=== PATIENT | female | born 1945 ===

== ENCOUNTER 2025-04-25 10:08 | Outpatient (AMB) | payer MEDICARE, SELFPAY ==
--- OUTSIDE RECORDS SUMMARY | 2025-04-19 14:42 | XMS_ITS | Encounter Summary ---
Author Organization [facility] Address [address] [place] [address] Care Team Providers Care [employer] C[employer] Cashier Name Role Phone Juany Sanchez MD Primary Care Prov ider Reason for Referral * Imaging (Routine) - Pending Review Specialty Diagnoses / Procedures Referred By Contac t Referred To Contact Radiology Diagnoses Encounter for screening mammogram for breast cancer Procedures MG Mammo Digital Screening w Lg bilat [facility], Self Referral [facility] Referral ID Status Reason Start Date Expiration Date V isits Requested Visits Authorized [id number] Pending Review 04/15/2025 04/15/2026 1 1 * Imaging (Routine) - Pending Review Specialty Diagnoses / Procedures Referred By Contac t Referred To Contact Radiology Diagnoses Encounter for screening mammogram for breast cancer Procedures MG Mammo Digital Screening w Lg bilat [facility], Self Referral [facility] Referral ID Status Reason Start Date Expiration Date V isits Requested Visits Authorized [id number] Pending Review 04/15/2025 04/15/2026 1 1 Reason for Visit * Imaging (Routine) - Pending Review Specialty Diagnoses / Procedures Referred By Contac t Referred To Contact Radiology Diagnoses Encounter for screening mammogram for breast cancer Procedures MG Mammo Digital Screening w Lg bilat [facility], Self Referral [facility] Referral ID Status Reason Start Date Expiration Date V isits Requested Visits Authorized [id number] Pending Review 04/15/2025 04/15/2026 1 1 Encounter Details Date Type Department Care Team (Latest Contact Info) Description 04/19/2025 2:42 PM EDT - 04/19/2025 11:59 PM EDT Hospital Encounter [facility] [address] [phone] Encounter for screening mammogram for breast cancer Discharge Disposition: Home or Self Care Social History Tobacco Use Types Packs/Day Years Used Date Smoking Tobacco: Former Cigarettes Q uit: 09/08/1988 Smokeless Tobacco: Never Alcohol Use Standard Drinks/Week Comments No 0 (1 standard drink = 0.6 oz pur e alcohol) Comments No Sex and Gender Information Value Date Recorded Sex Assigned at Not on file Legal Sex Female 1:09 PM EST Gender Identity Not on file Sexual Orientation Not on file documented as of this encounter Last Filed Vital Signs Vital Sign Reading Time Taken Comments Blood Pressure - - Pulse - - Temperature - - Respiratory Rate - - Oxygen Saturation - - Inhaled Oxygen Concentration - - Weight 56.2 kg (124 lb) 04/19/2025 2:53 PM EDT Height 160 cm (5' 3 ) 04/19/2025 2:53 PM EDT Body Mass Index 21.97 04/19/2025 2:53 PM EDT documented in this encounter Medications at Time of Discharge cholecalciferol (VITAMIN D-3) 50 mcg (2,000 unit) tablet Take by mouth daily. CRANBERRY ORAL Take 4,200 mg by mouth daily. GENERIC EXTERNAL MEDICATION 500 mg daily. Calcium zinc Vitamin d3 glucosamine/chondr oitin/C/Zbigniew (GLUCOSAMINE 1500 COMPLEX ORAL) Take 1,500 mg by mouth daily. Lactobacillus acidophilus (PROBIOTIC ORAL) Take by mouth. multivit-min/folic acid/lutein (CENTRUM SILVER ORAL) Take by mouth. RED YEAST RICE ORAL Take by mouth. SALMON OIL-OMEGA-3 FATTY ACIDS ORAL Take by mouth. documented as of this encounter Discharge Disposition Disposition Code Departure Means Destination Home or Self Care documented in this encounter Plan of Treatment Upcoming Encounters Date Type Department Care Team (Late st Contact Info) Description 10/13/2025 11:00 AM EST Office Visit Adult Medicine - [address] [phone] Juany Sanchez MD [address] [place] [address] 04/21/2026 3:00 PM EDT [facility]ointment [facility] [address] [phone] documented as of this encounter Procedures Procedure Name Priority Date/Time Associated Diagnosis Comments MG MAMMO DIGITAL SCREENING W LG BILAT Routine 04/19/2025 3:04 PM EDT Encounter for screening mammogram for breast cancer documented in this encounter Results * MG Mammo Digital Screening w Lg bilat (04/19/2025 3:04 PM EDT) Anatomical Region Laterality Modality Breast Bilateral Mammography 04/20/2025 6:56 AM EDT Impressions 04/20/2025 7:03 AM EDT No mammographic evidence of malignancy. No suspicious interval change. A negative mammogram in the presence of a clinically suspicious palpable abnormality does not preclude the possibility of malignancy or alter the indications for biopsy. ASSESSMENT: BI-RADS 1: NEGATIVE RECOMMENDATION(S): 1: Routine screening mammogram BILATERAL in 1 year. Mammography location: [facility] at [address], [address] -------- FINAL REPORT -------- Dictated By: Duy Jensen Dictated Date: 04/20/2025 06:56 ET Assigned Physician: Duy Jensen Reviewed and Electronically Signed By: Duy Jensen Signed Date: 04/20/2025 07:03 ET Workstation ID: [id number] Transcribed By: Self Edit Transcribed Date: 04/20/2025 06:56 ET Narrative 04/20/2025 7:03 AM EDT EXAM: SCREENING MAMMOGRAPHY, BILATERAL HISTORY: SCREENING. No additional history. COMPARISON: 10/23/23, 10/18/22, 10/16/21, 10/13/20 TECHNIQUE: Synthesized CC and MLO projections of each breast. Tomosynthesis of each breast in the CC and MLO projections. ADDITIONAL IMAGING: None Computer-aided detection was employed with the [employer] AI 3-D. TISSUE DENSITY: There are scattered areas of fibroglandular density. (BI-RADS category B) FINDINGS: RIGHT BREAST: No suspicious mass. No suspicious calcification. No distortion. No additional suspicious right breast findings LEFT BREAST: No suspicious mass. No suspicious calcification. No distortion. No additional suspicious left breast findings Procedure Note Duy Jensen MD - 04/20/2025 EXAM: SCREENING MAMMOGRAPHY, BILATERAL HISTORY: SCREENING. No additional history. COMPARISON: 10/23/23, 10/18/22, 10/16/21, 10/13/20 TECHNIQUE: Synthesized CC and MLO projections of each breast.Tomosynthesis of each breast in the CC and MLO projections. ADDITIONAL IMAGING: None Computer-aided detection was employed with the [employer] AI 3-D. TISSUE DENSITY: There are scattered areas of fibroglandular density.(BI-RADS category B) FINDINGS: RIGHT BREAST: No suspicious mass. No suspicious calcification. No distortion. Noadditional suspicious right breast findings LEFT BREAST: No suspicious mass. No suspicious calcification. No distortion. Noadditional suspicious left breast findings IMPRESSION: No mammographic evidence of malignancy. No suspicious interval change. A negative mammogram in the presence of a clinically suspicious palpableabnormality does not preclude the possibility of malignancy or alter theindications for biopsy. ASSESSMENT: BI-RADS 1: NEGATIVE RECOMMENDATION(S): 1: Routine screening mammogram BILATERAL in 1 year. Mammography location: [facility] at [address], [address] -------- FINAL REPORT -------- Dictated By: Duy Jensen Dictated Date: 04/20/2025 06:56 ET Assigned Physician: Duy Jensen Reviewed and Electronically Signed By: Duy Jensen Signed Date: 04/20/2025 07:03 ET Workstation ID: [id number] Transcribed By: Self Edit Transcribed Date: 04/20/2025 06:56 ET us Self Referral [facility] IMG BI PROCEDURES Final Resul t documented in this encounter Visit Diagnoses Diagnosis Encounter for screening mammogram for breast cancer Encounter for screening mammogram for breast cancer documented in this encounter Additional Health Concerns Assessment Noted Time PHQ-9 Depression Total Score: 0 10/12/19 25 2:09 PM EST documented as of this encounter Care Teams [employer] Cashier Relationship Specialty Start Date End Date Juany Sanchez MD PCP - General Internal Medicine 11/18/12 documented as of this encounter
--- OUTSIDE RECORDS SUMMARY | 2025-04-25 11:02 | XMS_ITS ---
Author Name [facility] Organization Unknown Care Team Organization Name Specialty Phone Email Start Date End Da te [facility] LOUIS SOOD Primary Care 08/20/20232023 [facility] VERÓNICA JENSEN Primary Care 07/16/2022 04/26/2024
== END 2025-04-25 10:18 | disposition home or self-care (01) ==
LOC: HO.HMGAL 10:08
PROVIDERS: PCP Internal Medicine; Visit Provider Registered Nurse Emergency
DX: J30.89 Other allergic rhinitis (principal)
CPT/HCPCS: 95117; 95165

== ENCOUNTER 2025-05-02 08:23 | Outpatient (AMB) | payer MEDICARE, SELFPAY ==
--- OUTSIDE RECORDS SUMMARY | 2025-05-02 08:46 | XMS_ITS | Clinical Summary ---
Author Organization [facility] [address] [facility] lding Address [address] [place] [address] Phone Care Team Providers Care Drop Forger Helper Name Role Phone Juany Sanchez MD Primary Care Prov ider Allergies Active Allergy Reactions Criticality Noted Date Comments Adhesive Tape-Silicones 12/16/2012 Other Reaction(s): Rash/Dermatitis Medications GENERIC EXTERNAL MEDICATION 500 mg daily. Calcium zinc Vitamin d3 Active CRANBERRY ORAL Take 4,200 mg by mouth daily. Active cholecalciferol (VITAMIN D-3) 50 mcg (2,000 unit) tablet Take by mouth daily. Active Lactobacillus acidophilus (PROBIOTIC ORAL) Take by mouth. Active SALMON OIL-OMEGA-3 FATTY ACIDS ORAL Take by mouth. Active RED YEAST RICE ORAL Take by mouth. Active glucosamine/collette droitin/C/Zbigniew (GLUCOSAMINE 1500 COMPLEX ORAL) Take 1,500 mg by mouth daily. Active multivit-min/fol ic acid/lutein (CENTRUM SILVER ORAL) Take by mouth. Active Active Problems Problem Noted Date Diagnosed Date Raynaud's disease without gangrene 04/12/2025 COVID-19 virus infection 02/06/2022 Overview (08/09/2024): 01/25/2022 Osteopenia 07/24/2017 Overview (08/09/2024): 07/23/19. No change 10/16/21 increase of 0.9% BMD lumbar spine since 2019. Decreased 2.1% right femur decrease of 3.7% in the left femur. Assessment & Plan (10/12/2024 5:49 PM EST): Orders: Vitamin D 25 hydroxy; Future Anal fissure 12/16/2012 Atrophic vaginitis 12/16/2012 Hypercholesteremia 12/16/2012 Assessment & Plan (10/12/2024 5:49 PM EST): Orders: Lipid panel with reflex to direct LDL; Future Comprehensive metabolic panel; Future Osteoarthritis 12/16/2012 Encounters Date Type Department Care Team Description 04/19/2025 2:42 PM EDT - 04/19/2025 11:59 PM EDT Hospital [facility] [address] [address] Encounter for screening mammogram for breast cancer Discharge Disposition: Home or Self Care 04/15/2025 Telephone Adult [facility] [address] [place] [phone] Juany Pedro MD orders call 04/12/2025 11:00 AM EDT Office Visit Adult [facility] [address] [place] [address] Juany Pedro MD Osteoarthritis of other site, unspecified osteoarthritis type (Primary Dx); Raynaud's disease without gangrene; Hypercholesteremia; Atrophic vaginitis; Anal fissure from Last 3 Months Immunizations Name Administration Dates Next Due DTP 12/16/2010 Influenza trivalent, 0.5mL ( Fluad) 65yo and older 06/19/2023,06/16/2019,06/26/2018,06/13,06/19/2016,06/19/2015,06/30/2014 ,06/16/2013 Influenza, Unspecified 06/08/2021,06/13/2017 Pfizer SARS-CoV-2 COVID-19, mRNA, LNP-S, preservative free 09/11/2022,03/18/2022,07/16/2021 Pneumococcal polysaccharide 23 valent (Pneumovax 23) 2yo and older 09/13/2020 Pneumococcal, Unspecified 10/09/2018 Respiratory syncytial virus (RSV), unspecified 08/26/2023 Td Tetanus diptheria (Tdvax) 7yo and older 03/24/2023 Zoster recombinant (Shingrix ) 19yo and older 06/08/2021,05/09/2021,01/08/2021,09/22 Surgical History Surgery Date Site/Laterality Comments APPENDECTOMY PROCEDURE: IA APPENDECTOMY; COMMENT: 1961 HERNIA REPAIR PROCEDURE: HISTORICAL HERNIA REPAIR/ING HYSTERECTOMY PROCEDURE: IA VAGINAL HYSTERECTOMY UTERUS 250 GM/<; COMMENT: has cervics OTHER SURGICAL HISTORY PROCEDURE: IA UNLISTED PROCEDURE ANUS; COMMENT: spincterectomy STEREOTACTIC CORE BIOPSY Bilateral Family History Medical History Relation Name Comments Arthritis Brother Other: gallstones Daughter Alcohol abuse Father Other: liver px Father Colon cancer Mother No Known Problems Sister No Known Problems Son 1 No Known Problems Son 2 Relation Name Status Comments Brother Alive Daughter Alive Father Mother Sister Alive Son 1 Alive Son 2 Alive Social History Tobacco Use Types Packs/Day Years [...] on file Sexual Orientation Not on file Obstetrics History Para Term AB IAB SAB Ectopic Multiple Livin g Live Births 3 Last Filed Vital Signs Vital Sign Reading Time Taken Comments Blood Pressure 133/52 04/12/2025 10:48 AM EDT Pulse 78 10/12/2024 2:04 PM EST Temperature 36.7 C (98.1 F) 04/12/2025 10:48 AM EDT Respiratory Rate - - Oxygen Saturation 99% 09/20/2024 11:18 AM EST Inhaled Oxygen Concentration - - Weight 56.2 kg (124 lb) 04/19/2025 2:53 PM EDT Height 160 cm (5' 3 ) 04/19/2025 2:53 PM EDT Body Mass Index 21.97 04/19/2025 2:53 PM EDT Plan of Treatment Upcoming Encounters Date Type Department Care Team (Late st Contact Info) Description 10/13/2025 11:00 AM EST Office Visit Adult Medicine [address] [phone] Juany Sanchez MD [facility] [place] [address] 04/21/2026 3:00 PM EDT [facility]ointment [facility] [address] [phone] Health Maintenance Due Date Last Done Comments RSV Immunization Adult Patients (1 - 1-dose 75+ series) 2021 08/26/2023 Pneumococcal Vaccine: 50+ Years (2 of 2 - PCV) 09/13/2021 09/13/2020, 10/09/2018, 10/09/2018 Social Influencers of Health Screening 08/17/2022 COVID-19 Vaccine ( season) 2024 09/11/2022, 03/18/2022, 07/16/2021, Additional history exists Influenza Vaccine (#1) 2025 , 06/19/2023, 06/19/2022, Additional history exists Falls Risk Assessment 10/12/2025 10/12/2024, 024 Medicare Annual Wellness Visit 10/12/2025 10/12/2024 Breast Cancer Screening 04/19/2027 04/19/20 25, 10/24/2023, 10/18/2022, Additional history exists Cholesterol Screening (Lipid Panel) 04/13/2030 04/13/2025, 10/13/2024, 03/25/2023 DTaP,Tdap,and Td Vaccines (3 - Td or Tdap) 03/24/2033 03/24/2023, 12/16/2010 Osteoporosis Screening (Bone Density Screening) 10/23/2033 10/23/2023, 10/16/2021, 07/23/2019 Hepatitis C Screening Completed 12/17/2013 Zoster Vaccines Completed 06/08/2021, 09/0 09/2020, 01/08/2021, Additional history exists RSV Immunization Patients Under 20 months Aged Out 08/26/2023 No longer eligible based on patient's age to complete this topic Depression Screening Completed 10/12/2024, 09/30/19 24 HIB Vaccines Aged Out No longer eligi ble based on patient's age to complete this topic HPV Vaccines Aged Out No longer eligi ble based on patient's age to complete this topic Hepatitis A Vaccines Aged Out No long er eligible based on patient's age to complete this topic Hepatitis B Vaccines Aged Out No long er eligible based on patient's age to complete this topic IPV Vaccines Aged Out No longer eligi ble based on patient's age to complete this topic MMR Vaccines Aged Out No longer eligi ble based on patient's age to complete this topic Meningococcal ACWY Vaccine Aged Out N o longer eligible based on patient's age to complete this topic Meningococcal B Vaccine Aged Out No l onger eligible based on patient's age to complete this topic Varicella Vaccines Aged Out No longer eligible based on patient's age to complete this topic Procedures Procedure Name Priority Date/Time Associated Diagnosis Comments MG MAMMO DIGITAL SCREENING W CRISTHIAN BILAT Routine 04/19/2025 3:04 PM EDT Encounter for screening mammogram for breast cancer COMPREHENSIVE METABOLIC PANEL Routine 04/13/2025 8:34 AM EDT Hypercholesteremia LIPID PANEL WITH REFLEX TO DIRECT LDL Routine 04/13/2025 8:34 AM EDT Hypercholesteremia [facility] DEXA AXIAL SKELETON Routine 10/23/2023 12:06 PM EST Other specified disorders of bone density and structure, other site DEPRESSION SCREENING Routine 09/30/2023 FALLS RISK ASSESSMENT Routine 09/30/2023 HEPATITIS C SCREENING Routine 12/17/2013 from Last 3 Months or Most Recently Relevant to Health Maintenance Results * MG Mammo Digital Screening w Cristhian bilat (04/19/2025 3:04 PM EDT) Anatomical Region [...] year. [facility]amm[facility] [address], [address] -------- FINAL REPORT -------- Dictated By: Duy Jensen Dictated Date: 04/20/2025 06:56 ET Assigned Physician: Duy Jensen Reviewed and Electronically Signed By: Duy Jensen Signed Date: 04/20/2025 07:03 ET Workstation ID: [id number] Transcribed By: Self Edit Transcribed Date: 04/20/2025 06:56 ET Narrative 04/20/2025 7:03 AM EDT EXAM: SCREENING MAMMOGRAPHY, BILATERAL HISTORY: SCREENING. No additional history. COMPARISON: 10/23/23, 10/18/22, 10/16/21, 10/13/20 TECHNIQUE: Synthesized CC and MLO projections of each breast. Tomosynthesis of each breast in the CC and MLO projections. ADDITIONAL IMAGING: None Computer-aided detection was employed with the [employer] AI 3-D. TISSUE DENSITY: There are scattered [...] None Computer-aided detection was employed with the [employer] AI 3-D. TISSUE DENSITY: There are scattered [...] year. [facility]amm[facility] location[facility] [address], [address] -------- FINAL REPORT -------- Dictated By: Duy Jensen Dictated Date: 04/20/2025 06:56 ET Assigned Physician: Duy Jensen Reviewed and Electronically Signed By: Duy Jensen Signed Date: 04/20/2025 07:03 ET Workstation ID: [id number] Transcribed By: Self Edit Transcribed Date: 04/20/2025 06:56 ET us Self Referral Sppl IMG BI PROCEDURES Final Resul t * Lipid panel with reflex to direct LDL (04/13/2025 8:34 AM EDT) Cholesterol 173 0 - 200 mg/dL LAB CHEMISTRY METHOD 04/13/2025 12:19 PM EDT [facility] Triglycerides 76 0 - 150 mg/dL LAB CHEMISTRY METHOD 04/13/2025 12:19 PM EDT [facility] HDL 68 >=40 mg/dL LAB CHEMISTRY METHOD 04/13/2025 12:19 PM EDT [facility] LDL Calculated 90 0 - 100 mg/dL LAB CHEMISTRY METHOD 04/13/2025 12:19 PM EDT [facility] Comment:Estimated LDL Calcul ated using equation: Total cholesterol - HDL cholesterol - (Triglycerides/5) VLDL Cholesterol Stefan 15.2 mg/dL LAB CHEMISTRY METHOD 04/13/2025 12:19 PM EDT [facility] Non HDL Chol. (LDL+VLDL) 105 <145 mg/dL LAB CHEMISTRY METHOD 04/13/2025 12:19 PM [facility] Chol/HDL Ratio 2.5 0.0 - 4.4 LAB CHEMISTRY METHOD 04/13/2025 12:19 PM [facility] Blood Venous blood specimen / Unknown Venipuncture / Unknown 04/13/2025 8:34 AM EDT 04/13/2025 8:34 AM EDT us Juany Sanhcez MD LAB BLOOD ORDERABL ES Final Result [facility] [address] [place] [address], * Comprehensive metabolic panel (04/13/2025 8:34 AM EDT) Sodium 135 133 - 145 mmol/L LAB CHEMISTRY METHOD 04/13/2025 12:19 PM [facility] Potassium 4.0 3.5 - 5.5 mmol/L LAB CHEMISTRY METHOD 04/13/2025 12:19 PM [facility] Chloride 103 96 - 110 mmol/L LAB CHEMISTRY METHOD 04/13/2025 12:19 PM [facility] CO2 26 21 - 32 mmol/L LAB CHEMISTRY METHOD 04/13/2025 12:19 PM [facility] Anion Gap 6 3 - 11 LAB CHEMISTRY METHOD 04/13/2025 12:19 PM [facility] Glucose 80 70 - 100 mg/dL LAB CHEMISTRY METHOD 04/13/2025 12:19 PM [facility] BUN 11 5 - 25 mg/dL LAB CHEMISTRY METHOD 04/13/2025 12:19 PM [facility] Creatinine 0.76 0.50 - 1.10 mg/dL LAB CHEMISTRY METHOD 04/13/2025 12:19 PM [facility] eGFR 80 >=60 mL/min/1. 73m2 LAB CHEMISTRY METHOD 04/13/2025 12:19 PM [facility] Comment:Calculation based on the Chronic Kidney Disease Epidemiology Collaboration (CKD-EPI) equation refit without adjustment for race. BUN/Creatinine Ratio 14.5 LAB CHEMISTRY METHOD 04/13/2025 12:19 PM [facility] Calcium 8.6 8.5 - 10.5 mg/dL LAB CHEMISTRY METHOD 04/13/2025 12:19 PM [facility] AST (SGOT) 29 10 - 42 unit/L LAB CHEMISTRY METHOD 04/13/2025 12:19 PM [facility] ALT (SGPT) 27 10 - 60 unit/L LAB CHEMISTRY METHOD 04/13/2025 12:19 PM [facility] Alkaline Phosphatase 72 42 - 121 unit/L LAB CHEMISTRY METHOD 04/13/2025 12:19 PM [facility] Total Protein 6.8 6.0 - 8.0 g/dL LAB CHEMISTRY METHOD 04/13/2025 12:19 PM [facility] Albumin 3.8 3.2 - 5.0 g/dL LAB CHEMISTRY METHOD 04/13/2025 12:19 PM [facility] Total Bilirubin 0.7 0.0 - 1.4 mg/dL LAB CHEMISTRY METHOD 04/13/2025 12:19 PM [facility] Blood Venous blood specimen / Unknown Venipuncture / Unknown 04/13/2025 8:34 AM EDT 04/13/2025 8:34 AM EDT us Juany Sanchez MD LAB BLOOD ORDERABL ES Final Result [facility] [address] [place] [address], * SINA DEXA AXIAL SKELETON (10/23/2023 12:06 PM EST) Anatomical Region Laterality Modality Mammography 10/23/2023 11:0 5 AM EST Narrative 10/23/2023 12:06 PM [facility] Diagnostic Imaging Department [address] [place] [id number] Patient: HERBERTHRACHEL NICOLAS D.O.B./Age/Sex: 1945 - 78 - F Unit#: [id number] [facility]Ordering Site: [facility] Ordering Physician: JUANY SANCHEZ MD Sina Dexa Axial Skeleton - 10/23/23 - 1159 Report Status:Signed HISTORY: The patient is a 78-year-old postmenopausal female with clinical concern for metabolic bone disease. FINDINGS: Dual energy x-ray absorptiometry of the lumbar spine and femurs is performed. The mean bone mineral density at L1-L4 is 1.047 gm/cm2 which is 89% of that of young normals and 113% of that of age matched controls. This yields a T-score of -1.1 and a Z-score of 1.0 which is diagnostic of osteopenia. The mean bone mineral density of the femurs bilaterally is 0.944 gm/cm2 which is 94% of that of young normals and 127% of that of age matched controls. This yields a T-score of -0.5 and a Z-score of 1.6 and there is therefore no evidence of osteoporosis or osteopenia here. However, the T-score of the right femoral neck is -1.8 and that of the left femoral neck is -1.2 which is diagnostic of osteopenia. IMPRESSION: 1. Osteopenia. There has been an increase of 2.3% in bone mineral density in the lumbar spine since the prior examination of 10/16/2021. There has been a decrease of 2.9% in bone mineral density in the right femur and an increase of 2.1% in bone mineral density in the left femur. 2. FRAX analysis yields a 10-year probability of major osteoporotic fracture of 12.3% and a 10-year probability of hip fracture of 3.2%. Code [address]12 CT T[facility] Dictating Physician: ANGELICA MARIEE MD Electronically Signed by: ANGELICA MARIEE MD Dic Date/Time: 10/23/23 1203 Sign date/Time: 10/23/23 1206 Procedure Note Angelica Mariee MD - 04/26/2024 [facility] Diagnostic Imaging Department [address] [place] [address] Patient: RACHEL KEVIN./Age/Sex: 1945 - 78 - F Unit#: [id number] Location/Status: [facility]em[facility] Ordering Physician: JUANY SANCHEZ MD Sina Dexa Axial Skeleton - 10/23/23 - 1159 Report Status:Signed HISTORY: The patient is a 78-year-old postmenopausal female withclinical concern for metabolic bone disease. FINDINGS: Dual energy x-ray absorptiometry of the lumbar spine and femursis performed. The mean bone mineral density at L1-L4 is 1.047 gm/cm2 which is89% of that of young normals and 113% of that of age matched controls. Thisyields a T-score of -1.1 and a Z-score of 1.0 which is diagnostic of osteopenia. The mean bone mineral density of the femurs bilaterally is 0.944 gm/ic8pvlzk is 94% of that of young normals and 127% of that of age matched controls.This yields a T-score of -0.5 and a Z-score of 1.6 and there is therefore noevidence of osteoporosis or osteopenia here. However, the T-score of the rightfemoral neck is -1.8 and that of the left femoral neck is -1.2 which is diagnosticof osteopenia. IMPRESSION: 1. Osteopenia. There has been an increase of 2.3% in bone mineral densityin the lumbar spine since the prior examination of 10/16/2021. There has ernesto decrease of 2.9% in bone mineral density in the right femur and anincrease of 2.1% in bone mineral density in the left femur. 2. FRAX analysis yields a 10-year probability of major osteoporoticfracture of 12.3% and a 10-year probability of hip fracture of 3.2%. Code 28569 CT Teleradiology Dictating Physician: ANGELICA MARIEE MD Electronically Signed by: ANGELICA MARIEE MD Dic Date/Time: 10/23/23 1203 Sign date/Time: 10/23/23 1206 Juany Sanchez MD IMG BI PROCEDURES Final Result * Falls Risk Assessment (09/30/2023) [facility] Falls Risk Assessment Abstracted Historical Provider HEALTH MAINTENANCE Final Result * Depression Screening (09/30/2023) [facility] Depression Screening Abstracted [facility] Provider HEALTH MAINTENANCE Final Result * Hepatitis C Screening (12/17/2013) [facility] Hepatitis C Screening Abstracted [facility] Provider HEALTH MAINTENANCE Final Result from Last 3 Months or Most Recently Relevant to Health Maintenance Insurance MEDICARE [facility] Advance Directives Documents on File Type Date Recorded Patient Montessori Lead Teacher Expl anation Advance Directives and Livin g Will 10/22/2024 2:37 PM molst * Full Code - Confirmed (Latest Code Status on File) Date Activated Date Inactivated Comments 10/12/2024 2:43 PM This code statu s was ascertained in the following way: Code status discussion: discussion with patient To update the patient's code status, place a code status order. Do not modify or discontinue any currently active code status orders. Care Teams Drop Forger Helper Relationship Specialty Start Date End Date Juany Sanchez MD PCP - General Internal Medicine 11/18/12
== END 2025-05-02 10:32 | disposition home or self-care (01) ==
LOC: HO.HMGAL 08:23
PROVIDERS: PCP Internal Medicine; Visit Provider Registered Nurse Emergency
DX: J30.89 Other allergic rhinitis (principal)
CPT/HCPCS: 95117; 95165

== ENCOUNTER 2025-05-16 11:06 | Outpatient (AMB) | payer MEDICARE, SELFPAY ==
--- OUTSIDE RECORDS SUMMARY | 2025-05-16 13:35 | XMS_ITS | Encounter Summary ---
Author Organization [facility] Address [address] [place] [address] Care Team Providers Care Audio Director Name Role Phone Juany Sanchez MD Primary Care Prov ider Reason for Visit * Reason Onset Date Comments orders call 04/15/2025 Encounter Details Date Type Department Care Team (Late st Contact Info) Description 04/15/2025 Telephone Adult Medicine - [place] [address] [place] [phone] Juany Sanchez MD [address] [place] [address] Social History Tobacco Use Types Packs/Day Years [...] on file documented as of this encounter Progress Notes * Juany Sanchez MD - 04/19/2025 1:23 PM EDT If she wants to get a mammogram that I will be up to her and her insurance there is no need at thistime for this * Marybeth Plasencia MA - 04/19/2025 1:10 PM EDT Called patient back, advised her of message, she said she spoke with radiology at [facility] and they advised her she can have one mammogram yearly with her insurance, so she scheduled this herself. She asked if no one cares after a certain age, I tried to let her know its not that no one cars and to explain there are medical guidelines to follow, but she is all set for Just . * Justen Ortega - 04/18/2025 3:32 PM EDT Patient calling back, please advise * Marybeth Plasencia MA - 04/18/2025 3:21 PM EDT Left message regarding this. * Juany Sanchez MD - 04/15/2025 3:07 PM EDT She does not need a mammogram unless she is having problems she should do daily self breast exams * Jhon Avila - 04/15/2025 10:02 AM EDT Pt calling in because she noticed that she has not had a mammogram since October of 2023. Asking if one should be ordered to get done. Pls advise, pt call can be returned to [phone]. Thx. documented in this encounter Plan of Treatment Upcoming Encounters Date Type Department Care Team (Late st Contact Info) Description 10/13/2025 11:00 AM EST Office Visit Adult Medicine - [place] [address] [place] [address] Juany Sanchez MD [address] [place] [address] 04/21/2026 3:00 PM EDT [facility]ointment [facility] [address] [phone] documented as of this encounter Visit Diagnoses Not on filedocumented in this encounter Additional Health Concerns Assessment Noted Time PHQ-9 Depression Total Score: 0 10/12/19 25 2:09 PM EST documented as of this encounter Care Teams Audio Director Relationship Specialty Start Date End Date Juany Sanchez MD PCP - General Internal Medicine 11/18/12 documented as of this encounter
--- OUTSIDE RECORDS SUMMARY | 2025-05-16 13:35 | XMS_ITS | Clinical Summary ---
Author Organization [facility] [address] [facility] lding Address [address] [place] [address] Phone Care Team Providers Care Candy Puller Name Role Phone Juany Sanchez MD Primary [...] EDT Hospital Encounter [facility] [address] [address] Encounter for screening mammogram for breast cancer Discharge Disposition: Home or Self Care 04/15/2025 Telephone Adult Medicine [facility] [address] [place] [address] Juany Pedro MD 04/12/2025 11:00 AM EDT Office Visit Adult [facility] [address] [place] [address] Juany Pedro MD Osteoarthritis of other site, [...] History Surgery Date Site/Laterality Comments APPENDECTOMY PROCEDURE: LA APPENDECTOMY; COMMENT: 1961 HERNIA REPAIR PROCEDURE: HISTORICAL HERNIA REPAIR/ING HYSTERECTOMY PROCEDURE: LA VAGINAL HYSTERECTOMY UTERUS 250 GM/<; COMMENT: has cervics OTHER SURGICAL HISTORY PROCEDURE: LA UNLISTED PROCEDURE ANUS; COMMENT: spincterectomy STEREOTACTIC CORE [...] Upcoming Encounters Date Type Department Care Team ([facility] st Contact Info) Description 10/13/2025 11:00 AM EST Office Visit Adult Medicine [address] [address] Juany Sanchez MD [facility] [place] [place] [address] 04/21/2026 3:00 PM EDT Appointment [facility] at [address] [address] Health Maintenance Due Date Last Done Comments RSV Immunization Adult Patients (1 - 1-dose 75+ series) 2021 08/26/2023 Pneumococcal Vaccine: 50+ Years (2 of 2 - PCV) 09/13/2021 09/13/2020, 10/09/2018, 10/09/2018 Social Influencers of Health Screening 08/17/2022 COVID-19 Vaccine ( season) 2025 09/11/2022, 03/18/2022, 07/16/2021, Additional history exists Influenza [...] LDL Routine 04/13/2025 8:34 AM EDT Hypercholesteremia [facility] DEXA AXIAL SKELETON Routine 10/23/2023 12:06 PM [...] year. Mammography location: [facility] [address], [address] -------- FINAL REPORT -------- Dictated By: Duy Jensen Dictated Date: 04/20/2025 06:56 ET Assigned Physician: Duy Jensen Reviewed and Electronically Signed By: Duy Jensen Signed Date: 04/20/2025 07:03 ET Workstation ID: [id number] Transcribed By: Self Edit Transcribed Date: 04/20/2025 06:56 ET Narrative 04/20/2025 7:03 AM EDT EXAM: SCREENING MAMMOGRAPHY, BILATERAL HISTORY: SCREENING. No additional history. COMPARISON: 10/23/23, 10/18/22, 10/16/21, 10/13/20 TECHNIQUE: Synthesized CC and MLO projections of each breast. Tomosynthesis of each breast in the CC and MLO projections. ADDITIONAL IMAGING: None Computer-aided detection was employed with the [employer] AI 3-D. TISSUE DENSITY: There are scattered [...] None Computer-aided detection was employed with the [employer] AI 3-D. TISSUE DENSITY: There are scattered [...] year. Mammography location[facility] [address], [address] -------- FINAL REPORT -------- Dictated By: Duy Jensen Dictated Date: 04/20/2025 06:56 ET Assigned Physician: Duy Jensen Reviewed and Electronically Signed By: Duy Jensen Signed Date: 04/20/2025 07:03 ET Workstation ID: [id number] Transcribed By: Self Edit Transcribed Date: 04/20/2025 06:56 ET us Self Referral Sppl IMG BI PROCEDURES Final Resul t * Lipid panel with reflex to direct LDL (04/13/2025 8:34 AM EDT) Cholesterol 173 0 - 200 mg/dL LAB CHEMISTRY METHOD 04/13/2025 12:19 PM EDT [facility] Triglycerides 76 0 - 150 mg/dL LAB CHEMISTRY METHOD 04/13/2025 12:19 PM EDT [facility] HDL 68 >=40 mg/dL LAB CHEMISTRY METHOD 04/13/2025 12:19 PM EDT [facility] LDL Calculated 90 0 - 100 mg/dL LAB CHEMISTRY METHOD 04/13/2025 12:19 PM EDT [facility] Comment:Estimated LDL Calcul ated using equation: Total cholesterol - HDL cholesterol - (Triglycerides/5) VLDL Cholesterol Stefan 15.2 mg/dL LAB CHEMISTRY METHOD 04/13/2025 12:19 PM EDT [facility] Non HDL Chol. (LDL+VLDL) 105 <145 mg/dL LAB CHEMISTRY METHOD 04/13/2025 12:19 PM [facility] Chol/HDL Ratio 2.5 0.0 - 4.4 LAB CHEMISTRY METHOD 04/13/2025 12:19 PM [facility] Blood Venous blood specimen / Unknown Venipuncture / Unknown 04/13/2025 8:34 AM EDT 04/13/2025 8:34 AM EDT us Juany Sanchez MD LAB BLOOD ORDERABL ES Final Result [facility] [address] [place] [address], * Comprehensive metabolic panel (04/13/2025 8:34 AM EDT) Sodium 135 133 - 145 mmol/L LAB CHEMISTRY METHOD 04/13/2025 12:19 PM [facility] Potassium 4.0 3.5 - 5.5 mmol/L LAB CHEMISTRY METHOD 04/13/2025 12:19 PM [facility] Chloride 103 96 - 110 mmol/L LAB CHEMISTRY METHOD 04/13/2025 12:19 PM [facility] CO2 26 21 - 32 mmol/L LAB CHEMISTRY METHOD 04/13/2025 12:19 PM [facility] Anion Gap 6 3 - 11 LAB CHEMISTRY METHOD 04/13/2025 12:19 PM [facility] Glucose 80 70 - 100 mg/dL LAB CHEMISTRY METHOD 04/13/2025 12:19 PM [facility] BUN 11 5 - 25 mg/dL LAB CHEMISTRY METHOD 04/13/2025 12:19 PM [facility] Creatinine 0.76 0.50 - 1.10 mg/dL LAB CHEMISTRY METHOD 04/13/2025 12:19 PM [facility] eGFR 80 >=60 mL/min/1. 73m2 LAB CHEMISTRY METHOD 04/13/2025 12:19 PM [facility] Comment:Calculation based on the Chronic Kidney Disease Epidemiology Collaboration (CKD-EPI) equation refit without adjustment for race. BUN/Creatinine Ratio 14.5 LAB CHEMISTRY METHOD 04/13/2025 12:19 PM [facility] Calcium 8.6 8.5 - 10.5 mg/dL LAB CHEMISTRY METHOD 04/13/2025 12:19 PM [facility] AST (SGOT) 29 10 - 42 unit/L LAB CHEMISTRY METHOD 04/13/2025 12:19 PM [facility] ALT (SGPT) 27 10 - 60 unit/L LAB CHEMISTRY METHOD 04/13/2025 12:19 PM [facility] Alkaline Phosphatase 72 42 - 121 unit/L LAB CHEMISTRY METHOD 04/13/2025 12:19 PM [facility] Total Protein 6.8 6.0 - 8.0 g/dL LAB CHEMISTRY METHOD 04/13/2025 12:19 PM [facility] Albumin 3.8 3.2 - 5.0 g/dL LAB CHEMISTRY METHOD 04/13/2025 12:19 PM [facility] Total Bilirubin 0.7 0.0 - 1.4 mg/dL LAB CHEMISTRY METHOD 04/13/2025 12:19 PM [facility] Blood Venous blood specimen / Unknown Venipuncture / Unknown 04/13/2025 8:34 AM EDT 04/13/2025 8:34 AM EDT us Juany Sanchez MD LAB BLOOD ORDERABL ES Final Result [facility] [address] [place] [address], * SINA DEXA AXIAL SKELETON (10/23/2023 12:06 PM EST) Anatomical Region Laterality Modality Mammography 10/23/2023 11:0 5 AM EST Narrative 10/23/2023 12:[address] [facility] Diagnostic Imaging Department [address] [place], [place] [id number] Patient: HERBERTHRACHEL NICOLAS D.O.B./Age/Sex: 1945 - 78 - F Unit#: [id number] Location/Status: [facility] CLI Mnemonic/Ordering [facility] Ordering Physician: JUANY SANCHEZ MD Sina Dexa [...] probability of hip fracture of 3.2%. Code 15645 CT Teleradiology Dictating Physician: ANGELICA MARIEE MD Electronically Signed by: ANGELICA MARIEE MD Dic Date/Time: 10/23/23 1203 Sign date/Time: 10/23/23 1206 Procedure Note Angelica Mariee MD - 04/26/2024 Diagnostic Imaging Department [address] [place] [address] Patient: HERBERTHRACHEL NICOLAS./Age/Sex: 1945 - 78 - F Unit#: [id number] Location/Status: [facility] Mnemonic/Ordering Site[facility] Ordering Physician: JUANY SANCHEZ MD Sina Dexa [...] density of the femurs bilaterally is 0.944 gm/pu3ppzzd is 94% of that of young normals [...] probability of hip fracture of 3.2%. Code [address]133 CT Teleradiology Dictating Physician: ANGELICA MARIEE MD Electronically Signed by: ANGELICA MARIEE MD Dic Date/Time: 10/23/23 1203 Sign date/Time: 10/23/23 1206 Result [facility] Juany Sanchez MD IMG BI PROCEDURES Final Result * Falls Risk Assessment (09/30/2023) [facility] Falls Risk Assessment Abstracted Result [facility] Provider HEALTH MAINTENANCE Final Result * Depression Screening (09/30/2023) [facility] Depression Screening Abstracted Result [facility] Provider HEALTH MAINTENANCE Final Result * Hepatitis C Screening (12/17/2013) [facility] Hepatitis C Screening Abstracted Result [facility] Provider HEALTH MAINTENANCE Final Result from Last 3 Months or Most Recently Relevant to Health Maintenance Insurance MEDICARE [facility] Advance Directives Documents on File Type Date Recorded Patient Bark Spudder Expl anation Advance Directives and Livin g [...] currently active code status orders. Care Teams Candy Puller Relationship Specialty Start Date End Date Juany Sanchez MD PCP - General Internal Medicine 11/18/12
== END 2025-05-16 11:08 | disposition home or self-care (01) ==
LOC: HO.HMGAL 11:06
PROVIDERS: PCP Internal Medicine; Visit Provider Registered Nurse Emergency
DX: J30.89 Other allergic rhinitis (principal)
CPT/HCPCS: 95117; 95165

== ENCOUNTER 2025-05-23 09:59 | Outpatient (AMB) | payer MEDICARE, SELFPAY ==
--- OUTSIDE RECORDS SUMMARY | 2025-05-23 12:24 | XMS_ITS | Encounter Summary ---
Author Organization [facility] Address [address] [place] [address] Care Team Providers Care Copy Chief Name Role Phone Unavailable Primary Care Provider Unavailabl e Encounter Details Date Type Department Care Team (Latest Contact Info) Description 05/18/2025 Lab Requisition [facility] [address] [facility] [place] [address] Min Salomon MD [address] [address] Encounter for gynecological examination (general) (routine) without abnormal findings Social History Tobacco Use Types Packs/Day Years [...] on file documented as of this encounter Plan of Treatment Upcoming Encounters Date Type Department Care Team (Late st Contact Info) Description 10/13/2025 11:00 AM EST Office Visit Adult Medicine - [place] [address] [place] [phone] Juany Sanchez MD [address] [place], [place] [phone] 04/21/2026 3:00 PM EDT [facility]ointment [facility] [address] [place] [address] Pending Results Name Type Priority Associated Diagnoses Date /Time Pap smear Pathology and Cytology Routine Encounter for gynecological examination (general) (routine) without abnormal findings 05/17/2025 12:00 AM EDT documented as of this encounter Visit Diagnoses Diagnosis Encounter for gynecological examination (general) (routine) without abnormal findings Encounter for screening mammogram for breast cancer documented in this encounter Additional Health Concerns Assessment Noted Time PHQ-9 Depression Total Score: 0 10/12/19 25 2:09 PM EST documented as of this encounter
--- OUTSIDE RECORDS SUMMARY | 2025-05-23 12:24 | XMS_ITS | Clinical Summary ---
Author Organization [facility] [address] [facility] lding Address [address] [place] [address] Phone Care Team Providers Care Specimen Boss Name Role Phone Unavailable Primary Care Provider Unavailabl e Allergies Active Allergy Reactions Criticality Noted Date [...] Encounters Date Type Department Care Team Description 05/18/2025 Lab Requisition [facility] [address] [facility] [place] [address] Min Salomon MD Encounter for gynecological examination (general) (routine) without abnormal findings 04/19/2025 2:42 PM EDT - 04/19/2025 11:59 PM EDT Hospital Encounter [facility] [address] [place] [phone] Encounter for screening mammogram for breast cancer Discharge Disposition: Home or Self Care 04/15/2025 Telephone Adult Medicine [address] [address] Juany Garay MD 04/12/2025 11:00 AM EDT Office Visit Adult [address] [phone] Juany Garay MD Osteoarthritis of other site, unspecified osteoarthritis [...] History Surgery Date Site/Laterality Comments APPENDECTOMY PROCEDURE: [place] APPENDECTOMY; COMMENT: 1962 HERNIA REPAIR PROCEDURE: HISTORICAL HERNIA REPAIR/ING HYSTERECTOMY PROCEDURE: [place] VAGINAL HYSTERECTOMY UTERUS 250 GM/<; COMMENT: has cervics OTHER SURGICAL HISTORY PROCEDURE: [place] UNLISTED PROCEDURE ANUS; COMMENT: spincterectomy STEREOTACTIC CORE [...] AM EST Office Visit Adult Medicine - [place] [address] [place] [phone] Juany Sanchez MD [address] [place] [address] 04/21/2026 3:00 PM EDT [facility]ointment [facility] [address] [address] Health Maintenance Due Date Last [...] LDL Routine 04/13/2025 8:34 AM EDT Hypercholesteremia [facility] DEXA AXIAL SKELETON Routine 10/23/2023 12:06 [...] year. Mammography location: [facility] at [address], [address] -------- FINAL REPORT -------- Dictated By: Duy Jensen Dictated Date: 04/20/2025 06:56 ET Assigned Physician: Duy Jensen Reviewed and Electronically Signed By: Duy Jensen Signed Date: 04/20/2025 07:03 ET Workstation ID: [id number] Transcribed By: Self Edit Transcribed Date: 04/20/2025 06:56 ET Narrative 04/20/2025 7:03 AM EDT EXAM: SCREENING MAMMOGRAPHY, BILATERAL HISTORY: SCREENING. No additional history. COMPARISON: 10/23/23, 10/18/22, 10/16/21, 10/13/20 TECHNIQUE: Synthesized CC and MLO projections of each breast. Tomosynthesis of each breast in the CC and MLO projections. ADDITIONAL IMAGING: None Computer-aided detection was employed with the [employer] AI 3-D. TISSUE DENSITY: There are scattered [...] year. Mammography location: [facility] at [address], [address] -------- FINAL REPORT -------- Dictated By: Duy Jensen Dictated Date: 04/20/2025 06:56 ET Assigned Physician: Duy Jensen Reviewed and Electronically Signed By: Duy Jensen Signed Date: 04/20/2025 07:03 ET Workstation ID: [id number] Transcribed By: Self Edit Transcribed Date: 04/20/2025 06:56 ET us Self Referral Sppl IMG BI PROCEDURES Final Resul t * Lipid panel with reflex to direct LDL (04/13/2025 8:34 AM EDT) Cholesterol 173 0 - 200 mg/dL LAB CHEMISTRY METHOD 04/13/2025 12:19 PM EDT [facility] Triglycerides 76 0 - 150 mg/dL LAB CHEMISTRY METHOD 04/13/2025 12:19 PM EDT [facility] HDL 68 >=40 mg/dL LAB CHEMISTRY METHOD 04/13/2025 12:19 PM EDT [facility] LDL Calculated 90 0 - 100 mg/dL LAB CHEMISTRY METHOD 04/13/2025 12:19 PM EDT [facility] Comment:Estimated LDL Calcul ated using equation: Total cholesterol - HDL cholesterol - (Triglycerides/5) VLDL Cholesterol Stefan 15.2 mg/dL LAB CHEMISTRY METHOD 04/13/2025 12:19 PM [facility] Non HDL Chol. (LDL+VLDL) 105 <145 mg/dL LAB CHEMISTRY METHOD 04/13/2025 12:19 PM [facility] Chol/HDL Ratio 2.5 0.0 - 4.4 LAB CHEMISTRY METHOD 04/13/2025 12:19 PM [facility] Blood Venous blood specimen / Unknown Venipuncture / Unknown 04/13/2025 8:34 AM EDT 04/13/2025 8:34 AM EDT us Juany Sanchez MD LAB BLOOD ORDERABL ES Final Result [facility] [address] [place] [address], [place] [phone] * Comprehensive metabolic panel (04/13/2025 8:34 AM [...] MD LAB BLOOD ORDERABL ES Final Result [facility] [address] [place] [address], * SINA DEXA AXIAL SKELETON (10/23/2023 12:06 PM EST) Anatomical Region Laterality Modality Mammography 10/23/2023 11:0 5 AM EST Narrative 10/23/2023 12:06 PM EST [facility] Diagnostic Imaging Department [address] [place] [address] Patient: RACHEL KEVIN./Age/Sex: 1945 - 78 - F Unit#: [id number] Location/Status: [facility] CLI Mnemonic/Ordering Site: [facility] Ordering Physician: JUANY SANCHEZ MD Sina Dexa [...] probability of hip fracture of 3.2%. Code [address]37 CT Teleradiology Dictating Physician: ANGELICA MARIEE MD Electronically Signed by: ANGELICA MARIEE MD Dic Date/Time: 10/23/23 1203 Sign date/Time: 10/23/23 1206 Procedure Note Angelica Mariee MD - 04/26/2024 [facility] Diagnostic Imaging Department [address] [place] [address] Patient: RACHEL KEVIN./Age/Sex: 1945 - 78 - F Unit#: [id number] Location/Status: [facility] CLI Mnemonic[facility] Ordering Physician: JUANY SANCHEZ MD Sina Dexa Axial Skeleton - 10/23/23 - 3626 Report Status:Signed HISTORY: The patient is a [...] density of the femurs bilaterally is 0.944 gm/rs9xfjuo is 94% of that of young normals [...] probability of hip fracture of 3.2%. Code 21019 CT Teleradiology Dictating Physician: ANGELICA MARIEE MD Electronically Signed by: ANGELICA MARIEE MD Dic Date/Time: 10/23/23 1203 Sign date/Time: 10/23/23 1206 Juany Sanchez MD IMG BI PROCEDURES Final Result * Falls Risk Assessment (09/30/2023) Pathologist [facility] Falls Risk Assessment Abstracted Historical Provider HEALTH MAINTENANCE Final Result * Depression Screening (09/30/2023) Pathologist [facility] Depression Screening Abstracted Historical Provider HEALTH MAINTENANCE Final Result * Hepatitis C Screening (12/17/2013) Hepatitis C Screening Abstracted Historical Provider HEALTH MAINTENANCE Final Result from Last 3 Months or Most Recently Relevant to Health Maintenance Insurance MEDICARE [facility] Advance Directives Documents on File Type Date Recorded Patient Drill Rig Operator Expl anation Advance Directives and Livin g [...]
== END 2025-05-23 10:10 | disposition home or self-care (01) ==
LOC: HO.HMGAL 09:59
PROVIDERS: PCP Internal Medicine; Visit Provider Registered Nurse Emergency
DX: J30.89 Other allergic rhinitis (principal)
CPT/HCPCS: 95117; 95165

== ENCOUNTER 2025-05-30 11:05 | Outpatient (AMB) | payer MEDICARE, SELFPAY ==
--- OUTSIDE RECORDS SUMMARY | 2025-05-30 13:44 | XMS_ITS | Encounter Summary ---
Author Organization [facility] Address [address] [place] [address] Care Team Providers Care Ediphone Operator Name Role Phone Unavailable Primary Care Provider Unavailabl e Encounter Details Date Type Department Care Team (Latest Contact Info) Description 05/18/2025 Lab Requisition [facility] 299 [facility] [place] [phone] Min Salomon MD 299 [facility] [address] [place] [phone] Encounter for gynecological examination (general) (routine) without [...] AM EST Office Visit Adult Medicine - [place] [address] [place] [phone] Juany Sanchez MD [address] [place] [address] 04/21/2026 3:00 PM EDT Appointment [facility] at [address] [phone] documented as of this encounter Procedures Procedure Name Priority Date/Time Associated Diagnosis Comments PAP SMEAR Routine 05/17/2025 12:00 AM EDT Encounter for gynecological examination (general) (routine) without abnormal findings documented in this encounter Results * Pap smear (05/17/2025 12:00 AM EDT) Interpretation Negative for intraepithelial lesion or malignancy 05/24/2025 3:40 PM EDT [facility] Clinical Information Ascus 05/24/2025 3:40 PM EDT [facility] General Categorization Negative 05/24/2025 3:40 PM EDT [facility] Other Findings Atrophy 05/24/2025 3:40 PM EDT [facility] Specimen Adequacy Satisfactory for evaluation 05/24/2025 3:40 PM EDT [facility] Pap Methodology Liquid Based Pap Test 05/24/2025 3:40 PM EDT [facility] Disclaimer Note: This pap test could not be imaged utilizing the [employer] System and required a manual review. The Pap test is a screening test which carries an inherent false negative rate. These test results should be correlated with the patient's clinical findings and history. This Pap test was processed using an automated screening system. Technical cytopathology services provided by [facility], at [address] [place] [id number] (CLIA # [id number]/Deonte Guardado MD, Brand Attendant.) 05/24/2025 3:40 PM EDT [facility] Console Pap Interpretation Reported 05/24/2025 3:40 PM T [facility] Brushing/Spatula Vaginal structure / Unknown 05/17/2025 05/18/2025 6:34 AM EDT us Min Salomon MD LAB CYTOLOGY ORDERABLES Final Result Performing Organization Address City/State/[facility] Co de Phone Number [facility]) [facility] [address] [place] [address], documented in this encounter Visit Diagnoses Diagnosis Encounter for gynecological examination (general) (routine) without abnormal findings Encounter for screening mammogram for breast cancer documented in this encounter Additional Health Concerns Assessment Noted Time PHQ-9 Depression Total Score: 0 10/12/19 25 2:09 PM EST documented as of this encounter
--- OUTSIDE RECORDS SUMMARY | 2025-05-30 13:44 | XMS_ITS | Clinical Summary ---
Author Organization [facility] [address] [facility] lding Address [address] [place] [address] Phone Care Team Providers Care Resource Center Teacher Name Role Phone Unavailable Primary Care Provider [...] Department Care Team Description 05/18/[address] [facility] - Main Lab 299 [facility] [place] [address] Min Salomon MD Encounter for gynecological examination (general) (routine) without abnormal findings 04/19/2025 2:42 PM EDT - 04/19/2025 11:59 PM EDT Hospital Encounter [facility] [address] [place] [address] Encounter for screening mammogram for breast cancer Discharge Disposition: Home or Self Care 04/15/2025 Telephone Adult Medicine [facility] [address] [place] [address] Juany Garay MD 04/12/2025 11:00 AM EDT Office Visit Adult [facility] [address] [place] [address] Juany Garay MD Osteoarthritis of other site, [...] History Surgery Date Site/Laterality Comments APPENDECTOMY PROCEDURE: MN APPENDECTOMY; COMMENT: 1961 HERNIA REPAIR PROCEDURE: HISTORICAL HERNIA REPAIR/ING HYSTERECTOMY PROCEDURE: MN VAGINAL HYSTERECTOMY UTERUS 250 GM/<; COMMENT: has cervics OTHER SURGICAL HISTORY PROCEDURE: MN UNLISTED PROCEDURE ANUS; COMMENT: spincterectomy STEREOTACTIC CORE [...] AM EST Office Visit Adult Medicine - [place] [address] [place] [address] Juany Sanchez MD [address] [place] [address] 04/21/2026 3:00 PM EDT [facility]ointment [facility] at [address] [address] Health Maintenance Due Date Last [...] gynecological examination (general) (routine) without abnormal findings MG MAMMO DIGITAL SCREENING W CRISTHIAN BILAT Routine 04/19/2025 3:04 PM EDT Encounter for screening mammogram for breast cancer COMPREHENSIVE METABOLIC PANEL Routine 04/13/2025 8:34 AM EDT Hypercholesteremia LIPID PANEL WITH REFLEX TO DIRECT LDL Routine 04/13/2025 8:34 AM EDT Hypercholesteremia [facility] DEXA AXIAL SKELETON Routine 10/23/2023 12:06 PM EST Other specified disorders of bone density and structure, other site DEPRESSION SCREENING Routine 09/30/2023 FALLS RISK ASSESSMENT Routine 09/30/2023 HEPATITIS C SCREENING Routine 12/17/2013 from Last 3 Months or Most Recently Relevant to Health Maintenance Results * Pap smear (05/17/2025 12:00 AM EDT) Interpretation Negative for intraepithelial lesion or malignancy 05/24/2025 3:40 PM EDT [facility] Clinical Information Ascus 05/24/2025 3:40 PM EDT [facility] General Categorization Negative 05/24/2025 3:40 PM EDT [facility] Other Findings Atrophy 05/24/2025 3:40 PM EDT [facility] Specimen Adequacy Satisfactory for evaluation 05/24/2025 3:40 PM EDT [facility] Pap Methodology Liquid Based Pap Test 05/24/2025 3:40 PM EDT [facility] Disclaimer Note: This pap test could not be imaged utilizing the Secure64 Imaging System and required a manual review. The Pap test is a screening test which carries an inherent false negative rate. These test results should be correlated with the patient's clinical findings and history. This Pap test was processed using an automated screening system. Technical cytopathology services provided by [facility], at [address] [place] [address] (CLIA # [id number]/Deonte Guardado MD, [employer].) 05/24/2025 3:40 PM EDT [facility] Console Pap Interpretation Reported 05/24/2025 3:40 PM EDT [facility] Brushing/Spatula Vaginal structure / Unknown 05/17/2025 05/18/2025 6:34 AM EDT us Min Salomon MD LAB CYTOLOGY ORDERABLES Final Result [facility] [address] [place] [address], [place] [phone] * MG Mammo Digital Screening w Cristhian [...] year. Mammography location: [facility] at [address], [address] -------- FINAL REPORT -------- Dictated By: Duy Jensen Dictated Date: 04/20/2025 06:56 ET Assigned Physician: Duy Jensen Reviewed and Electronically Signed By: Duy Jensen Signed Date: 04/20/2025 07:03 ET Workstation ID: [id number] Transcribed By: Self Edit Transcribed Date: 04/20/2025 06:56 ET Narrative 04/20/2025 7:03 AM EDT EXAM: SCREENING MAMMOGRAPHY, BILATERAL HISTORY: SCREENING. No additional history. COMPARISON: 10/23/23, 10/18/22, 10/16/21, 10/13/20 TECHNIQUE: Synthesized CC and MLO projections of each breast. Tomosynthesis of each breast in the CC and MLO projections. ADDITIONAL IMAGING: None Computer-aided detection was employed with the iCAD [employer] AI 3-D. TISSUE DENSITY: There are scattered [...] year. Mammography location: [facility] at [address], [address] -------- FINAL REPORT -------- Dictated By: Duy Jensen Dictated Date: 04/20/2025 06:56 ET Assigned Physician: Duy Jensen Reviewed and Electronically Signed By: Duy Jensen Signed Date: 04/20/2025 07:03 ET Workstation ID: [id number] Transcribed By: Self Edit Transcribed Date: 04/20/2025 [...] mg/dL LAB CHEMISTRY METHOD 04/13/2025 12:19 PM T [facility] Non HDL Chol. (LDL+VLDL) 105 <145 mg/dL LAB CHEMISTRY METHOD [facility] Chol/HDL Ratio 2.5 0.0 - 4.4 LAB CHEMISTRY METHOD 04/13/2025 12:19 PM [facility] Blood Venous blood specimen / Unknown Venipuncture / Unknown 04/13/2025 8:34 AM EDT 04/13/2025 8:34 AM EDT Juany Sanchez MD LAB BLOOD ORDERABL ES Final Result [facility] [address] [place] [address], [place] [phone] * Comprehensive metabolic panel (04/13/2025 8:34 AM EDT) Sodium 135 133 - 145 mmol/L LAB CHEMISTRY METHOD 04/13/2025 12:19 PM [facility] Potassium 4.0 3.5 - 5.5 mmol/L LAB CHEMISTRY METHOD 04/13/2025 12:19 PM [facility] Chloride 103 96 - 110 mmol/L LAB CHEMISTRY METHOD 04/13/2025 12:19 PM [facility] CO2 26 21 - 32 mmol/L LAB CHEMISTRY METHOD 04/13/2025 12:19 PM [facility] Anion Gap 6 3 - 11 LAB CHEMISTRY METHOD 04/13/2025 12:19 PM [facility] Glucose 80 70 - 100 mg/dL LAB CHEMISTRY METHOD 04/13/2025 12:19 PM [facility] BUN 11 5 - 25 mg/dL LAB CHEMISTRY METHOD 04/13/2025 12:19 PM [facility] Creatinine 0.76 0.50 - 1.10 mg/dL LAB CHEMISTRY METHOD 04/13/2025 12:19 PM [facility] eGFR 80 >=60 mL/min/1. 73m2 LAB CHEMISTRY METHOD 04/13/2025 12:19 PM [facility] Comment:Calculation based on the Chronic Kidney Disease Epidemiology Collaboration (CKD-EPI) equation refit without adjustment for race. BUN/Creatinine Ratio 14.5 LAB CHEMISTRY METHOD 04/13/2025 12:19 PM [facility] Calcium 8.6 8.5 - 10.5 mg/dL LAB CHEMISTRY METHOD 04/13/2025 12:19 PM [facility] AST (SGOT) 29 10 - 42 unit/L LAB CHEMISTRY METHOD 04/13/2025 12:19 PM [facility] ALT (SGPT) 27 10 - 60 unit/L LAB CHEMISTRY METHOD 04/13/2025 12:19 PM [facility] Alkaline Phosphatase 72 42 - 121 unit/L LAB CHEMISTRY METHOD 04/13/2025 12:19 PM [facility] Total Protein 6.8 6.0 - 8.0 g/dL LAB CHEMISTRY METHOD 04/13/2025 12:19 PM [facility] Albumin 3.8 3.2 - 5.0 g/dL LAB CHEMISTRY METHOD 04/13/2025 12:19 PM [facility] Total Bilirubin 0.7 0.0 - 1.4 mg/dL LAB CHEMISTRY METHOD 04/13/2025 12:19 PM [facility] Blood Venous blood specimen / Unknown Venipuncture / Unknown 04/13/2025 8:34 AM EDT 04/13/2025 8:34 AM EDT us Juany Sanchez MD LAB BLOOD ORDERABL ES Final Result [facility] [address] [place] [address], * SINA DEXA AXIAL SKELETON (10/23/2023 12:06 PM EST) Anatomical Region Laterality Modality Mammography 10/23/2023 11:0 5 AM EST Narrative 10/23/2023 12:06 PM EST [facility] Diagnostic Imaging Department [address] [place] [address] Patient: RACHEL KEVIN D.O.B./Age/Sex: 1945 - 78 - F Unit#: [id number] Location/Status: [facility] Mnemonic[facility]ing [facility] Ordering Physician: JUANY SANCHEZ MD [facility] Dexa Axial Skeleton - 10/23/23 - 1159 [...] probability of hip fracture of 3.2%. Code [address]9831 CT Teleradiology Dictating Physician: ANGELICA MARIEE MD Electronically Signed by: ANGELICA MARIEE MD Dic Date/Time: 10/23/23 1203 Sign date/Time: 10/23/23 1206 Procedure Note Angelica Mariee MD - 04/26/2024 [facility] Diagnostic Imaging Department [address] [place] [address] Patient: RACHEL KEVIN D.O.B./Age/Sex: 1945 - 78 - F Unit#: [id number] Location/Status: [facility] Mnemonic/Ordering Site: [facility] Ordering Physician: JUANY SANCHEZ MD Sina Dexa [...] density of the femurs bilaterally is 0.944 gm/me6vankv is 94% of that of young normals [...] probability of hip fracture of 3.2%. Code [address] CT Teleradiology Dictating Physician: ANGELICA MARIEE MD Electronically Signed by: ANGELICA MARIEE MD Dic Date/Time: 10/23/23 1203 Sign date/Time: 10/23/23 1206 Juany Sanchez MD IMG BI PROCEDURES Final Result * Falls Risk Assessment (09/30/2023) [facility] Falls Risk Assessment Abstracted Historical Provider HEALTH MAINTENANCE Final Result * Depression Screening (09/30/2023) Depression Screening Abstracted Historical Provider MD HEALTH MAINTENANCE Final Result * Hepatitis C Screening (12/17/2013) Hepatitis C Screening Abstracted Historical Provider HEALTH MAINTENANCE Final Result from Last 3 Months or Most Recently Relevant to Health Maintenance Insurance MEDICARE [facility] Advance Directives Documents on File Type Date Recorded 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
== END 2025-05-30 11:31 | disposition home or self-care (01) ==
LOC: HO.HMGAL 11:05
PROVIDERS: PCP Internal Medicine; Visit Provider Registered Nurse Emergency
DX: J30.89 Other allergic rhinitis (principal)
CPT/HCPCS: 95117; 95165

== ENCOUNTER 2025-06-13 13:35 | Outpatient (AMB) | payer MEDICARE, SELFPAY ==
--- OUTSIDE RECORDS SUMMARY | 2025-06-13 15:55 | XMS_ITS | Clinical Summary ---
Author Organization [facility] [address] [facility] lding Address [address] [place] [address] Phone Care Team Providers Care Marine Electrician Apprentice Name Role Phone Unavailable Primary Care Provider [...] increase of 0.9% BMD lumbar spine since 2018. Decreased 2.1% right femur decrease of 3.7% [...] Department Care Team Description 05/18/2025 Lab Requisition [facility] - Main Lab [address] [facility] [place] [address] Min Salomon MD Encounter for gynecological examination (general) (routine) without abnormal findings 04/19/2025 2:42 PM EDT - 04/19/2025 11:59 PM EDT Hospital Encounter [facility] at [facility] [address] [place] [address] Encounter for screening mammogram for breast cancer Discharge Disposition: Home or Self Care 04/15/2025 Telephone Adult Medicine [address] [address] Juany Garay MD 04/12/2025 11:00 AM EDT Office Visit Adult [facility] [address] [place] [address] Juany Garay MD Osteoarthritis of other site, unspecified osteoarthritis type (Primary Dx); Raynaud's disease without gangrene; Hypercholesteremia; Atrophic vaginitis; Anal fissure from Last 3 Months Immunizations Immunization Administration Dates Next Due DTP 12/16/2010 Influenza [...] History Surgery Date Site/Laterality Comments APPENDECTOMY PROCEDURE: MO APPENDECTOMY; COMMENT: 1961 HERNIA REPAIR PROCEDURE: HISTORICAL HERNIA REPAIR/ING HYSTERECTOMY PROCEDURE: MO VAGINAL HYSTERECTOMY UTERUS 250 GM/<; COMMENT: has cervics OTHER SURGICAL HISTORY PROCEDURE: [place] UNLISTED PROCEDURE ANUS; COMMENT: spincterectomy STEREOTACTIC CORE [...] AM EST Office Visit Adult Medicine - [place] [address] [place] [address] Juany Sanchez MD [address] [place] [address] 04/21/2026 3:00 PM EDT Appointment [facility] at [address] [address] Health Maintenance Due Date Last [...] LDL Routine 04/13/2025 8:34 AM EDT Hypercholesteremia [facility] DEXA AXIAL SKELETON Routine 10/23/2023 12:06 PM EST Other specified disorders of bone density and structure, other site DEPRESSION SCREENING Routine 09/30/2023 FALLS RISK ASSESSMENT Routine 09/30/2023 HEPATITIS C SCREENING Routine 12/17/2013 from Last 3 Months or Most Recently Relevant to Health Maintenance Results * Pap smear (05/17/2025 12:00 AM EDT) Interpretation Negative for intraepithelial lesion or malignancy 05/24/2025 3:40 PM EDT [facility] Clinical Information Ascus 05/24/2025 3:40 PM EDT [facility] General Categorization Negative 05/24/2025 3:40 PM EDT [facility] Other Findings Atrophy 05/24/2025 3:40 PM EDT [facility] Specimen Adequacy Satisfactory for evaluation 05/24/2025 3:40 PM EDT [facility] Pap Methodology Liquid Based Pap Test 05/24/2025 3:40 PM EDT [facility] Disclaimer Note: This pap test could not be imaged utilizing the Fliggo Imaging System and required a manual review. The Pap test is a screening test which carries an inherent false negative rate. These test results should be correlated with the patient's clinical findings and history. This Pap test was processed using an automated screening system. Technical cytopathology services provided by [facility], at [address] [place] [address] (CLIA # [id number]/Deonte Guardado MD, Realty Specialist.) 05/24/2025 3:40 PM EDT [facility] Console Pap Interpretation Reported 05/24/2025 3:40 PM EDT [facility] Brushing/Spatula Vaginal structure / Unknown 05/17/2025 05/18/2025 6:34 AM EDT us Min Salomon MD LAB CYTOLOGY ORDERABLES Final Result [facility] [address] [place] [address], [place] [phone] * MG Mammo Digital Screening w Cristhian [...] year. Mammography location: [facility] at [address], [address] -------- FINAL REPORT -------- Dictated By: Duy Jensen Dictated Date: 04/20/2025 06:56 ET Assigned Physician: Duy Jensen Reviewed and Electronically Signed By: Duy Jensen Signed Date: 04/20/2025 07:03 ET Workstation ID: [id number] Transcribed By: Self Edit Transcribed Date: 04/20/2025 06:56 ET Narrative 04/20/2025 7:03 AM EDT EXAM: SCREENING MAMMOGRAPHY, BILATERAL HISTORY: SCREENING. No additional history. COMPARISON: 10/23/23, 10/18/22, 10/16/21, 10/13/20 TECHNIQUE: Synthesized CC and MLO projections of each breast. Tomosynthesis of each breast in the CC and MLO projections. ADDITIONAL IMAGING: None Computer-aided detection was employed with the iCAD [employer] AI 3-D. TISSUE DENSITY: There are scattered [...] year. Mammography location: [facility] at [address], [address] -------- FINAL REPORT -------- Dictated By: Duy Jensen Dictated Date: 04/20/2025 06:56 ET Assigned Physician: Duy Jensen Reviewed and Electronically Signed By: Duy Jensen Signed Date: 04/20/2025 07:03 ET Workstation ID: [id number] Transcribed By: Self Edit Transcribed Date: 04/20/2025 06:56 ET us Self Referral Sppl IMG BI PROCEDURES Final Resul t * Lipid panel with reflex to direct LDL (04/13/2025 8:34 AM EDT) Cholesterol 173 0 - 200 mg/dL LAB CHEMISTRY METHOD 04/13/2025 12:19 PM EDT [facility] Triglycerides 76 0 - 150 mg/dL LAB CHEMISTRY METHOD 04/13/2025 12:19 PM EDT [facility] HDL 68 >=40 mg/dL LAB CHEMISTRY METHOD 04/13/2025 12:19 PM EDT [facility] LDL Calculated 90 0 - 100 mg/dL LAB CHEMISTRY METHOD 04/13/2025 12:19 PM EDT [facility] Comment:Estimated LDL Calcul ated using equation: Total cholesterol - HDL cholesterol - (Triglycerides/5) VLDL Cholesterol Stefan 15.2 mg/dL LAB CHEMISTRY METHOD 04/13/2025 12:19 PM T [facility] Non HDL Chol. (LDL+VLDL) 105 <145 mg/dL LAB CHEMISTRY METHOD 04/13/2025 12:[facility] Chol/HDL Ratio 2.5 0.0 - 4.4 LAB CHEMISTRY METHOD 04/13/2025 12:19 PM [facility] Blood Venous blood specimen / Unknown Venipuncture / Unknown 04/13/2025 8:34 AM EDT 04/13/2025 8:34 AM EDT Juany Sanchez MD LAB BLOOD ORDERABL ES Final Result [facility] [address] [place] [address], [place] [phone] * Comprehensive metabolic panel (04/13/2025 8:34 AM EDT) Sodium 135 133 - 145 mmol/L LAB CHEMISTRY METHOD 04/13/2025 12:19 PM [facility] Potassium 4.0 3.5 - 5.5 mmol/L LAB CHEMISTRY METHOD 04/13/2025 12:19 PM [facility] Chloride 103 96 - 110 mmol/L LAB CHEMISTRY METHOD 04/13/2025 12:19 PM [facility] CO2 26 21 - 32 mmol/L LAB CHEMISTRY METHOD 04/13/2025 12:19 PM [facility] Anion Gap 6 3 - 11 LAB CHEMISTRY METHOD 04/13/2025 12:19 PM [facility] Glucose 80 70 - 100 mg/dL LAB CHEMISTRY METHOD 04/13/2025 12:19 PM [facility] BUN 11 5 - 25 mg/dL LAB CHEMISTRY METHOD 04/13/2025 12:19 PM [facility] Creatinine 0.76 0.50 - 1.10 mg/dL LAB CHEMISTRY METHOD 04/13/2025 12:19 PM [facility] eGFR 80 >=60 mL/min/1. 73m2 LAB CHEMISTRY METHOD 04/13/2025 12:19 PM [facility] Comment:Calculation based on the Chronic Kidney Disease Epidemiology Collaboration (CKD-EPI) equation refit without adjustment for race. BUN/Creatinine Ratio 14.5 LAB CHEMISTRY METHOD 04/13/2025 12:19 PM [facility] Calcium 8.6 8.5 - 10.5 mg/dL LAB CHEMISTRY METHOD 04/13/2025 12:19 PM [facility] AST (SGOT) 29 10 - 42 unit/L LAB CHEMISTRY METHOD 04/13/2025 12:19 PM [facility] ALT (SGPT) 27 10 - 60 unit/L LAB CHEMISTRY METHOD 04/13/2025 12:19 PM [facility] Alkaline Phosphatase 72 42 - 121 unit/L LAB CHEMISTRY METHOD 04/13/2025 12:19 PM [facility] Total Protein 6.8 6.0 - 8.0 g/dL LAB CHEMISTRY METHOD 04/13/2025 12:19 PM [facility] Albumin 3.8 3.2 - 5.0 g/dL LAB CHEMISTRY METHOD 04/13/2025 12:19 PM [facility] Total Bilirubin 0.7 0.0 - 1.4 mg/dL LAB CHEMISTRY METHOD 04/13/2025 12:19 PM [facility] Blood Venous blood specimen / Unknown Venipuncture / Unknown 04/13/2025 8:34 AM EDT 04/13/2025 8:34 AM EDT us Juany Sanchez MD LAB BLOOD ORDERABL ES Final Result [facility] [address] [place] [address], * SINA DEXA AXIAL SKELETON (10/23/2023 12:06 PM EST) Anatomical Region Laterality Modality Mammography 10/23/2023 11:0 5 AM EST Narrative 10/23/2023 12:06 PM EST [facility] Diagnostic Imaging Department [address] [place] [address] Patient: RACHEL KEVIN D.O.B./Age/Sex: 1945 - 78 - F Unit#: [id number] Location/Status: [facility] Mnemonic[facility] Ordering Physician: JUANY SANCHEZ MD [facility] Dexa Axial Skeleton - 10/23/23 - [...] probability of hip fracture of 3.2%. Code [address]11 CT Teleradiology Dictating Physician: ANGELICA MARIEE MD Electronically Signed by: ANGELICA MARIEE MD Dic Date/Time: 10/23/23 1203 Sign date/Time: 10/23/23 1206 Procedure Note Angelica Mariee MD - 04/26/2024 [facility] Diagnostic Imaging Department [address] [place] [address] Patient: RACHEL KEVIN D.O.B./Age/Sex: 1945 - 78 - F Unit#: [id number] Location/Status: [facility] Mnemonic/Ordering Site: [facility] Ordering Physician: JUANY SANCHEZ MD Sina Dexa [...] density of the femurs bilaterally is 0.944 gm/rl7cndzs is 94% of that of young normals [...] probability of hip fracture of 3.2%. Code [address]63 CT Teleradiology Dictating Physician: ANGELICA MARIEE MD Electronically Signed by: ANGELICA MARIEE MD Dic Date/Time: 10/23/23 1203 Sign date/Time: 10/23/23 1206 Juany Sanchez MD IMG BI PROCEDURES Final Result * Falls Risk Assessment (09/30/2023) [facility] Falls Risk Assessment Abstracted Historical Provider HEALTH MAINTENANCE Final Result * Depression Screening (09/30/2023) Depression Screening Abstracted Historical Provider MD HEALTH MAINTENANCE Final Result * Hepatitis C Screening (12/17/2013) Hepatitis C Screening Abstracted Historical Provider HEALTH MAINTENANCE Final Result from Last 3 Months or Most Recently Relevant to Health Maintenance Insurance [facility]ICARE [facility] Advance Directives Documents on File Type Date Recorded 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
--- OUTSIDE RECORDS SUMMARY | 2025-06-13 15:55 | XMS_ITS | Encounter Summary ---
Author Organization [facility] Address [address] [place] [address] Care Team Providers Care Insurance Premium Auditor Name Role Phone Unavailable Primary Care Provider Unavailabl e Encounter Details Date Type Department Care Team (Latest Contact Info) Description 05/18/2025 Lab Requisition [facility] - Main Lab [address] [facility] [place] [phone] Min Salomon MD 299 [facility] [address] [place] [phone] Encounter for gynecological examination (general) (routine) without [...] AM EST Office Visit Adult Medicine - [place] [address] [place] [phone] Juany Sanchez MD [address] [place] [address] 04/21/2026 3:00 PM EDT Appointment [facility] at [address] [address] documented as of this encounter Procedures Procedure Name Priority Date/Time Associated Diagnosis Comments PAP SMEAR Routine 05/17/2025 12:00 AM EDT Encounter for gynecological examination (general) (routine) without abnormal findings documented in this encounter Results * Pap smear (05/17/2025 12:00 AM EDT) Interpretation Negative for intraepithelial lesion or malignancy 05/24/2025 3:40 PM EDT [facility] Clinical Information Ascus 05/24/2025 3:40 PM EDT [facility] General Categorization Negative 05/24/2025 3:40 PM EDT [facility] Other Findings Atrophy 05/24/2025 3:40 PM EDT [facility] Specimen Adequacy Satisfactory for evaluation 05/24/2025 3:40 PM EDT [facility] Pap Methodology Liquid Based Pap Test 05/24/2025 3:40 PM EDT [facility] Disclaimer Note: This pap test could not be imaged utilizing the Mitrionics[employer]ic Imaging System and required a manual review. The Pap test is a screening test which carries an inherent false negative rate. These test results should be correlated with the patient's clinical findings and history. This Pap test was processed using an automated screening system. Technical cytopathology services provided by [facility], at [address] [place] [address] (CLIA # [id number]/Deonte Guardado MD, Hearing Dog Trainer.) 05/24/2025 3:40 PM EDT [facility] Console Pap Interpretation Reported 05/24/2025 3:40 PM T [facility] Brushing/Spatula Vaginal structure / Unknown 05/17/2025 05/18/2025 6:34 AM EDT us Min Salomon MD LAB CYTOLOGY ORDERABLES Final Result Performing Organization Address City/State/[facility] [[email or web address]] Co de Phone Number [facility] ([facility] [address] [place] [address], documented in this encounter Visit Diagnoses Diagnosis Encounter for gynecological examination (general) (routine) without abnormal findings Encounter for screening mammogram for breast cancer documented in this encounter Additional Health Concerns Assessment Noted Time PHQ-9 Depression Total Score: 0 10/12/19 25 2:09 PM EST documented as of this encounter
== END 2025-06-13 13:36 | disposition home or self-care (01) ==
LOC: HO.HMGAL 13:35
PROVIDERS: PCP Internal Medicine; Visit Provider Registered Nurse Emergency
DX: J30.89 Other allergic rhinitis (principal)
CPT/HCPCS: 95117; 95165

== ENCOUNTER 2025-06-27 10:04 | Outpatient (AMB) | payer MEDICARE, SELFPAY ==
--- OUTSIDE RECORDS SUMMARY | 2025-06-27 11:31 | XMS_ITS | Encounter Summary ---
Author Organization [facility] Address [address] [place] [address] Care Team Providers Care Air Twist Operator Name Role Phone Unavailable Primary Care Provider Unavailabl e Encounter Details Date Type Department Care Team (Latest Contact Info) Description 05/18/2025 Lab Requisition [facility] - Main Lab [address] [facility] [place] [phone] Min Salomon MD 299 [facility] [address] [place] [phone] Encounter for gynecological examination (general) (routine) without [...] AM EST Office Visit Adult Medicine - [place] [address] [place] [phone] Juany Sanchez MD [address] [place] [address] 04/21/2026 3:00 PM EDT [facility]ment [facility] [address] [phone] documented as of this encounter Procedures Procedure Name Priority Date/Time Associated Diagnosis Comments PAP SMEAR Routine 05/17/2025 12:00 AM EDT Encounter for gynecological examination (general) (routine) without abnormal findings documented in this encounter Results * Pap smear (05/17/2025 12:00 AM EDT) Interpretation Negative for intraepithelial lesion or malignancy 05/24/2025 3:40 PM EDT [facility] Clinical Information Ascus 05/24/2025 3:40 PM EDT [facility] General Categorization Negative 05/24/2025 3:40 PM EDT [facility] Other Findings Atrophy 05/24/2025 3:40 PM EDT [facility] Specimen Adequacy Satisfactory for evaluation 05/24/2025 3:40 PM EDT [facility] Pap Methodology Liquid Based Pap Test 05/24/2025 3:40 PM EDT [facility] Disclaimer Note: This pap test could not be imaged utilizing the [employer] Imaging System and required a manual review. The Pap test is a screening test which carries an inherent false negative rate. These test results should be correlated with the patient's clinical findings and history. This Pap test was processed using an automated screening system. Technical cytopathology services provided by [facility], at [address] [place] [id number] (CLIA # [id number]/Deonte Guardado MD, Water Gas Operator.) 05/24/2025 3:40 PM EDT [facility] Console Pap Interpretation Reported 05/24/2025 3:40 PM T [facility] Brushing/Spatula Vaginal structure / Unknown 05/17/2025 05/18/2025 6:34 AM EDT us Min Salomon MD LAB CYTOLOGY ORDERABLES Final Result Performing Organization Address City/State/[facility] Co de Phone Number [facility] [address] [place] [address], documented in this encounter Visit Diagnoses Diagnosis Encounter for gynecological examination (general) (routine) without abnormal findings Encounter for screening mammogram for breast cancer documented in this encounter Additional Health Concerns Assessment Noted Time PHQ-9 Depression Total Score: 0 10/12/19 25 2:09 PM EST documented as of this encounter
--- OUTSIDE RECORDS SUMMARY | 2025-06-27 11:31 | XMS_ITS | Clinical Summary ---
Author Organization [facility] [address] [facility] lding Address [address] [place] [address] Phone Care Team Providers Care Safety Officer Name Role Phone Unavailable Primary Care Provider [...] Department Care Team Description 05/18/2025 Lab Requisition [facility] - Main Lab 299 [facility] [place] [address] Min Salomon MD Encounter for gynecological examination (general) (routine) without abnormal findings 04/19/2025 2:42 PM EDT - 04/19/2025 11:59 PM EDT Hospital En[facility] [address] [place] [address] Encounter for screening mammogram for breast cancer Discharge Disposition: Home or Self Care 04/15/2025 Telephone Adult Medicine [address] [phone] Juany Garay MD 04/12/2025 11:00 AM EDT Office Visit Adult [facility] [address] [place] [address] Juany Garay MD Osteoarthritis of other site, [...] History Surgery Date Site/Laterality Comments APPENDECTOMY PROCEDURE: FL APPENDECTOMY; COMMENT: 1961 HERNIA REPAIR PROCEDURE: HISTORICAL HERNIA REPAIR/ING HYSTERECTOMY PROCEDURE: FL VAGINAL HYSTERECTOMY UTERUS 250 GM/<; COMMENT: has cervics OTHER SURGICAL HISTORY PROCEDURE: FL UNLISTED PROCEDURE ANUS; COMMENT: spincterectomy STEREOTACTIC CORE [...] AM EST Office Visit Adult Medicine - [place] [address] [place] [phone] Juany Sanchez MD [address] [place] [address] 04/21/2026 3:00 PM EDT [facility] at [address] [phone] Health Maintenance Due Date Last [...] LDL Routine 04/13/2025 8:34 AM EDT Hypercholesteremia [facility] DEXA AXIAL SKELETON Routine 10/23/2023 [...] lesion or malignancy 05/24/2025 3:40 PM EDT [facility] Clinical Information Ascus 05/24/2025 3:40 PM EDT [facility] General Categorization Negative 05/24/2025 3:40 PM EDT [facility] Other Findings Atrophy 05/24/2025 3:40 PM EDT [facility] Specimen Adequacy Satisfactory for evaluation 05/24/2025 3:40 PM EDT [facility] Pap Methodology Liquid Based Pap Test 05/24/2025 3:40 PM EDT [facility] Disclaimer Note: This pap test could not be imaged utilizing the [employer] Imaging System and required a manual review. The Pap test is a screening test which carries an inherent false negative rate. These test results should be correlated with the patient's clinical findings and history. This Pap test was processed using an automated screening system. Technical cytopathology services provided by [facility], at [address] [place] [address] (CLIA # [id number]/Deonte Guardado MD, Production Truck Driver.) 05/24/2025 3:40 PM EDT [facility] Console Pap Interpretation Reported 05/24/2025 3:40 PM EDT [facility] Brushing/Spatula Vaginal structure / Unknown 05/17/2025 05/18/2025 6:34 AM EDT us Min Salomon MD LAB CYTOLOGY ORDERABLES Final Result [facility] [address] [place] [address], [place] [phone] * MG Mammo Digital Screening w Cristhian [...] Mammography location[facility] at [address], [address] -------- FINAL REPORT -------- Dictated By: Duy Jensen Dictated Date: 04/20/2025 06:56 ET Assigned Physician: Duy Jensen Reviewed and Electronically Signed By: Duy Jensen Signed Date: 04/20/2025 07:03 ET Workstation ID: [id number] Transcribed By: Self Edit Transcribed Date: 04/20/2025 06:56 ET Narrative 04/20/2025 7:03 AM EDT EXAM: SCREENING MAMMOGRAPHY, BILATERAL HISTORY: SCREENING. No additional history. COMPARISON: 10/23/23, 10/18/22, 10/16/21, 10/13/20 TECHNIQUE: Synthesized CC and MLO projections of each breast. Tomosynthesis of each breast in the CC and MLO projections. ADDITIONAL IMAGING: None Computer-aided detection was employed with the [employer] AI 3-D. TISSUE DENSITY: There are [...] Mammography location: [facility] at [address], [address] -------- FINAL REPORT -------- Dictated By: Duy Jensen Dictated Date: 04/20/2025 06:56 ET Assigned Physician: Duy Jensen Reviewed and Electronically Signed By: Duy Jensen Signed Date: 04/20/2025 07:03 ET Workstation ID: [id number] Transcribed By: Self Edit Transcribed Date: 04/20/2025 06:56 ET us Self Referral Sppl IMG BI PROCEDURES Final Resul t * Lipid panel with reflex to direct LDL (04/13/2025 8:34 AM EDT) Cholesterol 173 0 - 200 mg/dL LAB CHEMISTRY METHOD 04/13/2025 12:19 PM EDT [facility] Triglycerides 76 0 - 150 mg/dL LAB CHEMISTRY METHOD 04/13/2025 12:19 PM EDT [facility] HDL 68 >=40 mg/dL LAB CHEMISTRY METHOD 04/13/2025 12:19 PM EDT [facility] LDL Calculated 90 0 - 100 mg/dL LAB CHEMISTRY METHOD 04/13/2025 12:19 PM EDT [facility] Comment:Estimated LDL Calcul ated using equation: Total cholesterol - HDL cholesterol - (Triglycerides/5) VLDL Cholesterol Stefan 15.2 mg/dL LAB CHEMISTRY METHOD 04/13/2025 12:19 PM T [facility] Non HDL Chol. (LDL+VLDL) 105 <145 mg/dL LAB CHEMISTRY METHOD [facility] Chol/HDL Ratio 2.5 0.0 - 4.4 LAB CHEMISTRY METHOD 04/13/2025 12:19 PM [facility] Blood Venous blood specimen / Unknown Venipuncture / Unknown 04/13/2025 8:34 AM EDT 04/13/2025 8:34 AM EDT Juany Sanchez MD LAB BLOOD ORDERABL ES Final Result [facility] [address] [place] [address], [place] [phone] * Comprehensive metabolic panel (04/13/2025 8:34 AM EDT) Sodium 135 133 - 145 mmol/L LAB CHEMISTRY METHOD 04/13/2025 12:19 PM [facility] Potassium 4.0 3.5 - 5.5 mmol/L LAB CHEMISTRY METHOD 04/13/2025 12:19 PM [facility] Chloride 103 96 - 110 mmol/L LAB CHEMISTRY METHOD 04/13/2025 12:19 PM [facility] CO2 26 21 - 32 mmol/L LAB CHEMISTRY METHOD 04/13/2025 12:19 PM [facility] Anion Gap 6 3 - 11 LAB CHEMISTRY METHOD 04/13/2025 12:19 PM [facility] Glucose 80 70 - 100 mg/dL LAB CHEMISTRY METHOD 04/13/2025 12:19 PM [facility] BUN 11 5 - 25 mg/dL LAB CHEMISTRY METHOD 04/13/2025 12:19 PM [facility] Creatinine 0.76 0.50 - 1.10 mg/dL LAB CHEMISTRY METHOD 04/13/2025 12:19 PM [facility] eGFR 80 >=60 mL/min/1. 73m2 LAB CHEMISTRY METHOD 04/13/2025 12:19 PM [facility] Comment:Calculation based on the Chronic Kidney Disease Epidemiology Collaboration (CKD-EPI) equation refit without adjustment for race. BUN/Creatinine Ratio 14.5 LAB CHEMISTRY METHOD 04/13/2025 12:19 PM [facility] Calcium 8.6 8.5 - 10.5 mg/dL LAB CHEMISTRY METHOD 04/13/2025 12:19 PM [facility] AST (SGOT) 29 10 - 42 unit/L LAB CHEMISTRY METHOD 04/13/2025 12:19 PM [facility] ALT (SGPT) 27 10 - 60 unit/L LAB CHEMISTRY METHOD 04/13/2025 12:19 PM [facility] Alkaline Phosphatase 72 42 - 121 unit/L LAB CHEMISTRY METHOD 04/13/2025 12:19 PM [facility] Total Protein 6.8 6.0 - 8.0 g/dL LAB CHEMISTRY METHOD 04/13/2025 12:19 PM [facility] Albumin 3.8 3.2 - 5.0 g/dL LAB CHEMISTRY METHOD 04/13/2025 12:19 PM [facility] Total Bilirubin 0.7 0.0 - 1.4 mg/dL LAB CHEMISTRY METHOD 04/13/2025 12:19 PM [facility] Blood Venous blood specimen / Unknown Venipuncture / Unknown 04/13/2025 8:34 AM EDT 04/13/2025 8:34 AM EDT us Juany Sanchez MD LAB BLOOD ORDERABL ES Final Result [facility] LAB [address] [place] [address], * SINA DEXA AXIAL SKELETON (10/23/2023 12:06 PM EST) Anatomical Region Laterality Modality Mammography 10/23/2023 11:0 5 AM EST Narrative 10/23/2023 12:06 PM EST [facility] Diagnostic Imaging Department [address] [place] [address] Patient: RACHEL KEVIN D.O.B./Age/Sex: 1945 - 78 - F Unit#: [id number] Location/Status: [facility] Ordering Physician: JUANY SANCHEZ MD [facility] Dexa Axial Skeleton - 10/23/23 - 1159 [...] probability of hip fracture of 3.2%. Code [address] [facility] Dictating Physician: ANGELICA MARIEE MD Electronically Signed by: ANGELICA MARIEE MD Dic Date/Time: 10/23/23 1203 Sign date/Time: 10/23/23 1206 Procedure Note Angelica Mariee MD - 04/26/2024 [facility] Diagnostic Imaging Department [address] [place] [id number] Patient: RACHEL KEVIN D.O.B./Age/Sex: 1945 - 78 - F Unit#: [id number] Location/Status: [facility] Mnemonic/Ordering Site: [facility] Ordering Physician: JUANY SANCHEZ MD Sina [...] density of the femurs bilaterally is 0.944 gm/ta1prjyd is 94% of that of young normals [...] probability of hip fracture of 3.2%. Code [address]304 CT T[facility] Dictating Physician: ANGELICA MARIEE MD Electronically Signed by: ANGELICA MARIEE MD Dic Date/Time: 10/23/23 1203 Sign date/Time: 10/23/23 1206 Juany Sanchez MD IMG BI PROCEDURES Final Result * Falls Risk Assessment (09/30/2023) [facility] [place] Risk Assessment Abstracted Historical Provider HEALTH MAINTENANCE Final Result * Depression Screening (09/30/2023) Depression Screening Abstracted Historical Provider MD HEALTH MAINTENANCE Final Result * Hepatitis C Screening (12/17/2013) Hepatitis C Screening Abstracted Historical Provider HEALTH MAINTENANCE Final Result from Last 3 Months or Most Recently Relevant to Health Maintenance Insurance MEDICARE [facility] Advance Directives Documents on File Type Date Recorded 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
== END 2025-06-27 10:14 | disposition home or self-care (01) ==
LOC: HO.HMGAL 10:04
PROVIDERS: PCP Internal Medicine; Visit Provider Registered Nurse Emergency
DX: J30.89 Other allergic rhinitis (principal)
CPT/HCPCS: 95117; 95165